=== PATIENT | female | born 1995 | race Hispanic/Latino ===

== ENCOUNTER 2020-04-27 14:22 | Emergency (ER) | payer OTHER, SELFPAY ==
--- NOTE | ~2020-04-27 | XR_ITS ---
EXAMINATION: XR chest 2V 04/27/2020 15:45 INDICATION: Chest pain PROCEDURE: 2 view chest COMPARISON: No prior studies for comparison. FINDINGS: The lungs are clear. There are a few calcified granulomas of the lung parenchyma. The cardi omediastinal silhouette is within normal limits. There are no pleural effusions. There is no pneumo thorax suspected. IMPRESSION: 1: NO ACUTE CARDIOPULMONARY DISEASE. Reviewed, dictated and finalized at location A.
--- NOTE | ~2020-04-27 | US_ITS ---
EXAMINATION:US venous doppler LE LT INDICATION:Calf pain TECHNIQUE: Multiple grayscale, color flow and Doppler images of the left lower extremity deep venous systems were obtained and reviewed. COMPARISON:No prior studies for comparison. FINDINGS: The common femoral, superficial femoral and popliteal veins demonstrate normal respiratory variation, augmentation and compressibility. Color flow is also seen within the posterior tibial, pe roneal, greater saphenous and profunda veins. IMPRESSION: 1: No lower extremity deep venous thrombosis. Reviewed, dictated and finalized at location A.
[2020-04-27 14:32] VITALS: BP 128/84; PULSE 102; RESP 18; TEMP 37.3; O2SAT 100
--- NOTE | 2020-04-27 14:35 | ECG_ITS ---
Measurements Intervals [place] Rate: 94 P: 53 MI: 156 QRS: 39 QRSD: 89 T: 9 QT: 322 QTc: 403 Interpretive Statements SINUS RHYTHM WITH SINUS ARRHYTHMIA BORDERLINE ST-T WAVE ABNORMALITY- INFERIOR LEADS BASELINE ARTIFACT- I, III, AVL BORDERLINE ECG Electronically Signed On 04-27-2020 15:16:36 CDT by Valdez Thomson D.O.
[2020-04-27 14:45] LABS: Basophils Percent Auto 0.1 % (0.2-1.2); Eosinophils Percent Auto 0.3 % (0-4.4); Hematocrit 41.3 % (37.0-47.0); Hemoglobin 13.8 g/dL (12.0-15.0); Immature Granulocyte Absolute 0.03 K/mm3 (0.00-0.031); Immature Granulocyte Percent A 0.3 % (0-0.5); Lymphocytes Percent Auto 19.4 % (18.3-44.2); Mean Corpuscular HGB Conc 33.4 g/dl (32-36); Mean Corpuscular Hemoglobin 30.2 pg (26-34); Mean Corpuscular Volume 90.4 fl (80-100); Mean Platelet Volume 9.8 fl (7.4-10.4); Monocytes Absolute Auto 0.8 K/mm3 (0.1-0.6); Monocytes Percent Auto 8.6 % (2.6-8.5); Neutrophils Absolute Auto 6.6 K/mm3 (1.3-6.7); Neutrophils Percent Auto 71.3 % (45.5-73.1); Platelet Count Result 207 k/mm3 (150-375); Red Blood Count 4.57 M/mm3 (4.2-5.4); Red Cell Distribution Width 12.6 % (11.5-14.5); White Blood Count 9.3 K/mm3 (4.5-10.0)
--- NOTE | 2020-04-27 14:54 | ED.CHESTPAIN ---
HPI - Chest Pain General Chief Complaint: Chest Pain Stated Complaint: CHEST PRESSURE Time Seen by Provider: 04/27/20 14:54 Source: patient and family Mode of arrival: ambulatory Limitations: no limitations History of Present Illness HPI narrative: Patient is a 24-year-old female with a history of migraines, anxiety, and depression who presents for evaluation of chest pressure and headache. Patient reports she was with her spouse doing laundry this afternoon when she experienced acute onset of chest pressure. She reports pressure was mild in nature, throughout her chest without radiation to her back, jaw, shoulder. She reports some associated lightheadedness and dizziness, denies any nausea, vomiting or loss of consciousness. Patient denies any palpitations. She states symptoms lasted for about 20 minutes before resolving on their own. Patient currently denies any chest pain and reports very mild chest pressure. Patient reports left leg pain. She denies swelling, erythema, history of long car or air travel, history of blood clot. Patient does not smoke. No family history of DVT. Patient does report a mild sore throat, no difficulty swallowing, rhinorrhea, denies loss of taste of sense or smell. No known COVID contacts. Patient does live on campus with her in student housing. Patient also reports history of headache pain since experiencing the chest pressure. Pain is located over her temples, patient does report she had a migraine last night which resolved with Excedrin, but seems to be rebounding. She denies current double or blurry vision. No neck pain. No nausea or vomiting. No thunderclap sensation. Related Data Home Medications Medication Instructions Recorded Confirmed fluvoxamine 100 mg PO HS 04/27/20 04/27/20 hydroxyzine HCl 25 mg PO DAILY PRN 04/27/20 04/27/20 lamotrigine 400 mg PO DAILY 04/27/20 04/27/20 Allergies Allergy/AdvReac Type Severity Reaction Status Date / Time No Known Allergies Allergy Verified 04/27/20 14:53 Review of Systems Review of Systems: Narrative: CONSTITUTIONAL: Denies fever, chills, or sweats. ENT: Reports rhinorrhea, congestion, sore throat CARDIOVASCULAR: Denies chest pain, reports mild chest pressure, denies palpitations, or edema. RESPIRATORY: Denies cough or dyspnea. GASTROINTESTINAL: Denies abdominal pain, nausea, vomiting, or diarrhea. GENITOURINARY: Denies dysuria or hematuria. SKIN: Denies rash or itching. MUSCULOSKELETAL: Reports mild bilateral back pain NEUROLOGIC: Denies headache, numbness, or weakness. PSYCHIATRIC: Reports history of anxiety and depression [facility] Past Medical History Medical History Migraine Surgical History Surgical History Hx of appendectomy Social History Social History (Updated 04/27/20 @ 15:18 by Kathi Hall MD) Smoking status: Never smoker Alcohol intake: current Alcohol use details: Social, rarely Substance use: former Substance use type: marijuana Living arrangements: with family Gender identity (if verbalized by the patient): Female Exam Narrative: Exam Narrative: GENERAL: Awake, alert, conversant HEAD: Normocephalic, atraumatic. EYES: PERRLA and EOMI. ENT: Nares clear, no rhinorrhea or epistaxis. Mucous membranes moist. NECK: Supple. CHEST: No respiratory distress, breathing even and non labored, positive chest wall pressure HEART: Regular rate, sinus rhythm ABDOMEN:Non distended, non tender EXTREMITIES: Normal range of motion. No edema. Positive left calf tenderness. SKIN: Warm, dry, no rash. NEURO:No focal deficits. Alert and oriented x3. EOMs intact without nystagmus. No facial droop/asymmetry noted bilaterally. Grimace intact. Intact sensation in face. Hearing intact bilaterally. Shoulder shrug intact. Strength 5/5 bilateral upper extremities. Strength 5/5 bilateral lower extremities. A
[2020-04-27 14:59] LABS: Anion Gap 14 mmol/L (8-16); Blood Urea Nitrogen 9 mg/dL (7-17); Calcium 9.5 mg/dL (8.4-10.2); Carbon Dioxide 20 mmol/L (22-30); Chloride 102 mmol/L (98-107); Estimated CRCL calculation 109 ml/min; Estimated Glomerular Filt Rate > 60; Glucose 97 mg/dL (65-105); Potassium 4.1 mmol/L (3.4-5.0); Sodium 136 mmol/L (137-145)
[2020-04-27 15:03] VITALS: BP 116/81; BP 128/82; BP 128/83; PULSE 100; PULSE 102; PULSE 110
[2020-04-27 15:11] LABS: Troponin I < 0.012 ng/mL (0.000-0.034)
[2020-04-27 16:00] VITALS: BP 100/69; PULSE 89; RESP 20; O2SAT 100
[2020-04-27] MEDS: METOCLOPRAMIDE HCL INJ 10 MG/2 ML VIAL IV PUSH (16:03)
[2020-04-27] MEDS: SODIUM CHLORIDE 0.9% IV 1,000 ML 999 ML IV CONT (16:03)
[2020-04-27] MEDS: diphenhydrAMINE HCl INJ 50 MG/ML VIAL 25 MG IV PUSH (16:04)
[2020-04-27] MEDS: MAGNESIUM SULF 2 GM/WATER 50ML 2 GM/50 ML BAG IVPB (16:05)
--- NOTE | 2020-04-27 16:12 | PC.NURSE ---
lab called. notified of add on labs
[2020-04-27 16:24] LABS: Anion Gap 10 mmol/L (8-16); Blood Urea Nitrogen 10 mg/dL (7-17); Calcium 9.4 mg/dL (8.4-10.2); Carbon Dioxide 22 mmol/L (22-30); Chloride 103 mmol/L (98-107); Estimated CRCL calculation 97 ml/min; Estimated Glomerular Filt Rate > 60; Glucose 96 mg/dL (65-105); Sodium 135 mmol/L (137-145)
[2020-04-27 16:25] LABS: INR 1.1; Prothrombin Time 13.4 Seconds (11.1-14.7)
[2020-04-27 16:26] LABS: Partial Thromboplastin Time 34.3 SECONDS (22.3-36.8)
[2020-04-27 16:29] LABS: D Dimer 0.38 ug/mL (<0.48)
[2020-04-27 16:35] LABS: Troponin I < 0.012 ng/mL (0.000-0.034)
[2020-04-27 17:49] VITALS: BP 132/75; PULSE 69; RESP 20; O2SAT 97
[2020-04-27 18:15] LABS: Add Urine Microscopic? YES; Appearance Urine Clear (Clear); Bilirubin Urine Negative (Negative); Blood Urine Negative (Negative); Color Urine Yellow (Yellow); Glucose Urine UA Negative (Negative); Ketones Urine 1+ mg/dL (Negative); Leukocyte Esterase Ur Negative LEU/UL (Negative); Mucus Urine Rare /lpf; Nitrate Urine Negative (Negative); Protein Urine Negative (Negative); RBC Urine 0-2 /hpf (0-2); Specific Grav Ur 1.019 (1.001-1.035); Squamous Epithelial Cell Urine Few /hpf (Few); Urobilinogen Urine Negative mg/dL (<2.0); WBC Urine 0-3 /hpf
[2020-04-27 18:30] LABS: Troponin I < 0.012 ng/mL (0.000-0.034)
[2020-04-27 18:50] VITALS: BP 115/72; PULSE 77; RESP 20; O2SAT 98
== END 2020-04-27 19:01 | disposition home or self-care (01) ==
PROVIDERS: Emergency Provider Emergency Medicine
DX: R07.89 Other chest pain (principal); G43.009 Migraine without aura, not intractable, without status migrainosus; R94.31 Abnormal electrocardiogram [ECG] [EKG]
CPT/HCPCS: 36415; 71046; 80048; 81001; 81025; 84484; 85025; 85380; 85610; 85730; 93005; 93971; 96365; 96366; 96367; 96375; 99284; J0131; J1100; J1200; J2765; J3475; J7030

== ENCOUNTER 2020-05-02 15:09 | Observation (INO) | payer OTHER, SELFPAY ==
[2020-05-02] VITALS (25 sets, daily range): BP systolic 91–136; BP diastolic 54–90; PULSE 66–112; RESP 15–28; TEMP 36.6; O2SAT 92–100; BMI 36.4
--- NOTE | ~2020-05-02 | CT_ITS ---
EXAMINATION: CTA chest PE protocol DATE: 05/03/2020 13:43 INDICATION: Shortness of breath. Chest pain. Syncope. TECHNIQUE: Computed tomography angiography (CTA) of the chest was performed with 100 mL Omnipaque-350 intravenous contrast timed to evaluate the pulmonary arteries. Coronal maximum intensity projection 3D-reconstructions were created by the technologist. Automated exposure control and iterative reconst ruction technique were employed. Exam dose: 539.64 mGy-cm total exam DLP. COMPARISON: None. FINDINGS: There is diagnostic contrast enhancement of the pulmonary arteries and no evidence of pulmo nary embolism. No thoracic aortic aneurysm or dissection. Normal heart size. No pericardial or pleural effusion. No hilar or mediastinal mass lesion or lymphadenopathy There is minimal nodular infiltrate in the posterior basilar right lower lobe. The lungs are otherwis e clear. No significant skeletal abnormality. IMPRESSION: No evidence of pulmonary embolism Minimal nodular infiltrate in the posterior basilar right lower lobe Reviewed, dictated and finalized at Location A. Reviewed, dictated and finalized at location A.
--- NOTE | ~2020-05-02 | MR_ITS ---
EXAMINATION: MR brain/brain stem wo/w con DATE: 05/04/2020 14:46 INDICATION: Transient alteration of awareness TECHNIQUE: Magnetic resonance imaging (MRI) of the brain and brainstem was performed without and with 19 cc of MultiHance intravenous contrast. Sequences included sagittal and axial T1-weighted SE, axia l diffusion-weighted FS EPI ASSET, axial T2*-weighted GRE, axial T2-weighted FLAIR Propeller, and axi al T2-weighted Propeller. Postcontrast axial and coronal T1-weighted SE was obtained. Apparent diffus ion coefficient (ADC) maps were created. COMPARISON: None. FINDINGS: There are no areas of restricted diffusion to suggest acute infarction. There is no acute h emorrhage seen on the T2*, a hemosiderin sensitive sequence. The ventricles are normal in size. There are no extra-axial collections. Flow voids are seen in the cerebral arteries on the T2-weighted seq uences consistent with their expected patency. Visualized orbits and soft tissues are unremarkable. There are no areas of abnormal enhancement on the post contrast images. IMPRESSION: 1. No acute findings. Reviewed, dictated and finalized at location A. IMPRESSION: 1. No acute findings.
--- NOTE | ~2020-05-02 | CT_ITS ---
EXAMINATION: CT brain wo con DATE: 05/03/2020 13:43 INDICATION: Syncope TECHNIQUE: Computed tomography (CT) of the head was performed without intravenous contrast. The mA wa s adjusted according to patient size. Iterative reconstruction technique was employed. Exam dose: 60 5.33 mGy-cm total exam DLP. COMPARISON: None FINDINGS: No intracranial mass lesion or hemorrhage or cerebrovascular accident is detected. No midli ne shift or mass effect. Normal ventricular size. Normal vigil-white matter differentiation. No subdur al or epidural hematoma. The orbital contents are unremarkable. The mastoid air cells and included paranasal sinuses are normally developed and aerated. No fracture or bone destruction of the cranial vault. IMPRESSION: Negative Reviewed, dictated and finalized at Location A. Reviewed, dictated and finalized at location A. IMPRESSION: Negative
--- NOTE | ~2020-05-02 | CT_ITS ---
EXAMINATION: CTA brain carotid DATE: 05/04/2020 15:33 INDICATION: Transient alteration of awareness TECHNIQUE: Computed tomographic angiography (CTA) of the head was performed without and with 100 mL O mnipaque-350 intravenous contrast. CTA of the neck was performed with intravenous contrast. The dose- length product was 1663.30 mGy-cm. Maximum intensity projection and volume rendered 3D-reconstruction s were created by the technologist on a separate workstation. Automated exposure control and iterativ e reconstruction technique were employed. COMPARISON: 05/03/2020 FINDINGS: HEAD CTA: There is no intracranial hemorrhage, acute infarction, or abnormal mass lesion. The ventric les are normal. There is no abnormal mass effect or midline shift. The vigil-white matter differentiat ion is normal. The basal cisterns are patent. The orbits are normal. The paranasal sinuses, mastoids and calvarium are normal. There is no significant stenosis of the basilar artery or posterior cerebral arteries. There is no si gnificant stenosis of the intracranial internal carotid arteries or the anterior or middle cerebral a rteries. The anterior communicating artery and posterior communicating arteries are normal. There is no aneurysm. NECK CTA: The thyroid gland is unremarkable. The submandibular and parotid glands are symmetric. Ther e is cervical lymphadenopathy, left greater than right. The airway is unremarkable. There are no osse ous abnormalities. The superior mediastinum is unremarkable. There is 0% stenosis of the proximal right internal carotid artery relative to normal distal artery l umen diameter (NASCET criteria). There is 0% stenosis of the proximal left internal carotid artery re lative to normal distal artery lumen diameter. IMPRESSION: 1. No acute intracranial abnormality. Normal head CTA. 2. 0% stenosis of the proximal right internal carotid artery relative to normal distal artery lumen d iameter (NASCET criteria). 3. 0% stenosis of the proximal left internal carotid artery relative to normal distal artery lumen di ameter. 4. Cervical lymphadenopathy, left greater than right, of unclear etiology. Findings could be reactive however lymphoma could have a similar appearance. Recommend clinical correlation and consider ultras ound-guided biopsy if persistent after appropriate therapy. Reviewed, dictated and finalized at location A. IMPRESSION: 1. No acute intracranial abnormality. Normal head CTA. 2. 0% stenosis of the proximal right internal carotid artery relative to normal distal artery lumen diameter (NASCET criteria). 3. 0% stenosis of the proximal left internal carotid artery relative to normal distal artery lumen diameter. 4. Cervical lymphadenopathy, left greater than right, of unclear etiology. Find ings could be reactive however lymphoma could have a similar appearance. Recomm end clinical correlation and consider ultrasound-guided biopsy if persistent af ter appropriate therapy.
--- NOTE | 2020-05-02 15:11 | ECG_ITS ---
Measurements Intervals [place] Rate: 84 P: 74 MN: 164 QRS: 62 QRSD: 91 T: 44 QT: 338 QTc: 401 Interpretive Statements SINUS RHYTHM INCOMPLETE RIGHT BUNDLE BRANCH BLOCK BASELINE ARTIFACT- I, II, III, AVR, AVL BORDERLINE ECG Electronically Signed On 05-02-2020 16:46:33 CDT by Valdez Thomson D.O.
[2020-05-02] MEDS: SODIUM CHLORIDE 0.9% IV 1,000 ML 999 ML IV CONT (16:30)
--- NOTE | 2020-05-02 16:31 | PC.NURSE ---
Refuses CXR. ERP aware.
[2020-05-02 16:46] LABS: Anion Gap 9 mmol/L (8-16); Blood Urea Nitrogen 15 mg/dL (7-17); Calcium 9.5 mg/dL (8.4-10.2); Carbon Dioxide 29 mmol/L (22-30); Chloride 99 mmol/L (98-107); Estimated CRCL calculation 90 ml/min; Estimated Glomerular Filt Rate > 60; Glucose 104 mg/dL (65-105); Potassium 3.8 mmol/L (3.4-5.0); Sodium 137 mmol/L (137-145)
[2020-05-02 16:47] LABS: Magnesium 2.5 mg/dL (1.6-2.3)
[2020-05-02 17:02] LABS: Troponin I < 0.012 ng/mL (0.000-0.034)
--- NOTE | 2020-05-02 17:06 | ED.SYNCOPE ---
HPI - Syncope General Chief Complaint: Syncope Stated Complaint: syncopal episode Time Seen by Provider: 05/02/20 15:48 History of Present Illness HPI narrative: Patient is a 24-year-old female who presents the ER with syncope. Occurred just prior to arrival. Lasted a couple seconds. She was sitting at a table and finished eating a meal and was doing some work when she felt like her heart was racing and she felt flushed. She then woke up on the ground. It was witnessed by coworkers. No headache or change in vision or hearing. This happens previously in the week she had an unremarkable work-up including troponins and d-dimer. She had been feeling in her normal state of health. No family history of sudden cardiac or arrhythmia. Related Data Home Medications Medication Instructions Recorded Confirmed fluvoxamine 100 mg PO HS 04/27/20 04/27/20 lamotrigine 400 mg PO DAILY 04/27/20 04/27/20 Allergies Allergy/AdvReac Type Severity Reaction Status Date / Time No Known Allergies Allergy Verified 05/02/20 15:52 Review of Systems Review of Systems: All systems reviewed & are unremarkable except as noted in HPI and below Constitutional: Constitutional: Denies chills, Denies fever(s) and Denies weakness Eyes: Eyes: Denies change in vision Cardiovascular: Cardiovascular: Denies chest pain, Reports rapid heart rate and Denies radiating jaw, neck or arm pain Respiratory: Respiratory: Denies cough and Denies dyspnea Neurologic: Reports syncope, Denies focal weakness and Denies numbness PMFSH Social History Social History (Updated 04/27/20 @ 15:18 by Kathi Hall MD) Smoking status: Never smoker Alcohol intake: current Substance use: former Substance use type: marijuana Gender identity (if verbalized by the patient): Female Exam Narrative: Exam Narrative: GENERAL: Well-appearing, well-nourished, and in no acute distress. HEAD: Normocephalic, atraumatic. EYES: PERRLA and EOMI. CHEST: Clear to auscultation. No respiratory distress. HEART: Regular rate and rhythm. No murmur heard. Normal peripheral pulses. ABDOMEN: Soft, nontender, nondistended. EXTREMITIES: Normal range of motion. No edema. SKIN: Warm, dry, no rash. NEURO: Alert and oriented x3. PSYCH: Normal mood and affect. Course Course Emergency Course: Discussed results with patient. Admit to hospitalist service since patient has had recurrent syncope for observation. May need Holter monitor outpatient. Pt refused CXR. Vital Signs Vital signs: Vital Signs Temperature 97.9 F 05/02/20 15:21 Pulse Rate 88 05/02/20 15:21 Respiratory Rate 16 05/02/20 15:21 Blood Pressure 125/85 05/02/20 15:21 Pulse Oximetry 100 05/02/20 15:21 Temperature 97.9 F 05/02/20 15:21 Pulse Rate 82 05/02/20 17:46 Respiratory Rate 22 H 05/02/20 17:46 Blood Pressure 119/80 05/02/20 17:45 Pulse Oximetry 100 05/02/20 17:46 MDM - Syncope Lab Data Result diagrams: 05/02/20 16:48 05/02/20 15:48 Labs: Lab Results 05/02/20 05/02/20 05/02/20 Range/Units 15:48 15:48 15:48 WBC (4.5-10.0) K/mm3 RBC (4.2-5.4) M/mm3 Hgb (12.0-15.0) g/dL Hct (37.0-47.0) % MCV (80-100) fl MCH (26-34) pg MCHC (32-36) g/dl RDW (11.5-14.5) % Plt Count (150-375) k/mm3 MPV (7.4-10.4) fl Immature Gran % (Auto) (0-0.5) % Neut % (Auto) (45.5-73.1) % Lymph % (Auto) (18.3-44.2) % [place] % (Auto) (2.6-8.5) % Eos % (Auto) (0-4.4) % Baso % (Auto) (0.2-1.2) % Lymph # (Auto) (0.9-3.2) K/mm3 [place] # (Auto) (0.1-0.6) K/mm3 Eos # (Auto) (0-0.3) K/mm3 Baso # (Auto) (0.0-0.1) K/mm3 Abs Immat Gran (auto) (0.00-0.031) K/mm3 Absolute Neuts (auto) (1.3-6.7) K/mm3 Absolute Nucleated RBC (0.0-0.012) K/mm3 Nucleated RBC % (0.0-0.2) % Sodium 137 (137-145) mmol/L Potassium 3.8 (3.4-5.0) mmol/L Chloride 99
[2020-05-02 17:08] LABS: Basophils Percent Auto 0.4 % (0.2-1.2); Eosinophils Absolute Auto 0.1 K/mm3 (0-0.3); Hematocrit 43.8 % (37.0-47.0); Hemoglobin 14.3 g/dL (12.0-15.0); Immature Granulocyte Absolute 0.12 K/mm3 (0.00-0.031); Immature Granulocyte Percent A 1.2 % (0-0.5); Lymphocytes Absolute Auto 2.84 K/mm3 (0.9-3.2); Lymphocytes Percent Auto 27.2 % (18.3-44.2); Mean Corpuscular HGB Conc 32.6 g/dl (32-36); Mean Corpuscular Hemoglobin 29.6 pg (26-34); Mean Corpuscular Volume 90.7 fl (80-100); Mean Platelet Volume 9.7 fl (7.4-10.4); Monocytes Absolute Auto 0.8 K/mm3 (0.1-0.6); Neutrophils Absolute Auto 6.5 K/mm3 (1.3-6.7); Neutrophils Percent Auto 62.2 % (45.5-73.1); Platelet Count Result 243 k/mm3 (150-375); Red Blood Count 4.83 M/mm3 (4.2-5.4); Red Cell Distribution Width 12.5 % (11.5-14.5); White Blood Count 10.4 K/mm3 (4.5-10.0)
--- NOTE | 2020-05-02 19:29 | PC.NURSE ---
Assumed care of pt at this time. Report from ANA Gerard
--- NOTE | 2020-05-02 21:28 | ADMGEN ---
This patient, Maria Alejandra Corcoran, was admitted to 2 Medical Room 243-. Patient/family oriented to hospital policies and general routines including ID bracelet, bed and alarms, visiting hours, pain management, procedures, bathroom and other care routines, personal items, smoking policy, room service/diet, and visiting hours. Valuables list has been completed. Information on how to activate the Rapid Response Team has been discussed. Patient/Family are encouraged to report perceived risks to care and to ask questions if they do not understand what they are told or what they should do.
[2020-05-02] MEDS: ACETAMINOPHEN 325 MG TABLET 650 MG PO (22:42)
[2020-05-03] VITALS (15 sets, daily range): BP systolic 106–136; BP diastolic 62–79; PULSE 65–125; RESP 15–16; TEMP 36.2–36.9; O2SAT 97–100
--- NOTE | 2020-05-03 | ECHO_ITS ---
Patient Info Name: Maria Alejandra Corcoran Age: 24 years : 1995 Gender: Female Ht: 65 in Wt: 219 lbs BSA: 2.18 m2 HR: 85 bpm BP: 115 / 69 mmHg Heart Rhythm: Sinus Rhythm Technical Quality: Good Exam Date: 05/03/2020 9:55 AM Exam Location: [facility] Patient Status: Inpatient Admit Date: 05/02/2020 Staff Ordering Physician: Juaquin Angel MD Manager Fine: Lisa Main RDCS Attending Provider: Sree Hurt MD Exam Type: CA echo dop color flow w con Study Info Complete two-dimensional, color flow and Doppler transthoracic echocardiogram is performed with contrast to opacify the left ventricle and to improve the deliniation of the left ventricle endocardial borders. Contrast/Agitated Saline Contrast/Ag. Saline: Definity Amount: 2.00 ml Summary 1. Left ventricular chamber dimension is normal. 2. Left ventricular systolic function is normal, estimated at 55-60%. 3. There is mildly increased left ventricular wall thickness. 4. Left ventricular septal wall motion is normal. 5. The left ventricular diastolic function is normal. 6. There is mild tricuspid valve regurgitation. Left Ventricle Left ventricular chamber dimension is normal. Left ventricular systolic function is normal, estimated at 55-60%. There is mildly increased left ventricular wall thickness. Left ventricular septal wall motion is normal. The left ventricular diastolic function is normal. Right Ventricle Right ventricular chamber dimension is normal. Right ventricular systolic function is normal. Left Atria Left atrial chamber dimension is normal. Right Atria Right atrial chamber dimension is normal. Atrial Septum Intact interatrial septum visualized by color flow imaging. Aortic Valve The aortic valve is probable trileaflet. There is no aortic valve sclerosis. There is no aortic valve stenosis. There is trace aortic valve regurgitation. Pulmonic Valve The pulmonic valve is normal. There is no pulmonic valve stenosis. There is trace pulmonic regurgitation. Mitral Valve The mitral valve has normal leaflets. There is no mitral valve stenosis. There is trace mitral valve regurgitation. Tricuspid Valve The tricuspid valve leaflets are normal. There is no significant tricuspid valve stenosis. There is mild tricuspid valve regurgitation. No pulmonary hypertension, estimated pulmonary arterial systolic pressure is 25 mmHg. Pericardium/Pleural The pericardium appears normal. There is no pericardial effusion. Inferior Vena Cava Normal inferior vena cava with >50% collapse upon inspiration consistent with normal right atrial pressure, 5 mmHg. Aorta The aortic root size at the sinus of Valsalva is normal. The prox ascending aorta size is normal. Left Ventricular Outflow Tract Name Value Normal LVOT 2D LVOT Diameter 2.04 cm LVOT Doppler LVOT Peak Gradient 4 mmHg LVOT Mean Gradient 2 mmHg LVOT VTI 19.76 cm LVOT VTI/AV VTI Ratio 0.74
--- NOTE | 2020-05-03 08:20 | PM.IMHP ---
H&P: HPI History of Present Illness Date/Time: 05/03/20 08:20 Chief complaint: Syncope Narrative: Maria Alejandra Corcoran is a 24 year old female with OCD and Bipolar disorder here for syncopal episodes. Patient was in a normal state of health until April 27 when she developed chest pressure associated with elevated heart rate and shortness of breath. She states that it felt like 1 of her anxiety attacks initially but overall felt different. She ended up having a syncopal episode that lasted about 30 seconds. She also had associated right-sided headache. She does have chronic headaches however. She came to the emergency room and was evaluated on that day. Troponins are negative. Urine was clear. Routine blood work was normal. EKG showing borderline ST T wave changes in inferior leads. She had a sinus arrhythmia. Chest x-ray was clear. Venous Dopplers were negative for DVT. D-dimer was negative. She was discharged home. Since being at home, she has had some mild dyspnea on exertion. She saw her primary care doctor on May 01 and he recommended patient follow-up with a marina manager and neurologist. Theer has been no recent new medications. Patient did sleep quite a bit on that day and woke up diaphoretic. On the day of admission, patient felt lightheaded at work. She had difficulty catching her breath. She was diaphoretic even with mild activity. She had been up for few minutes when she became lightheaded and fainted. There was loss of consciousness but no head injury. She denies neck pain but did have a headache later. She denies any fevers but has been having chills over the past week. She has been also having intermittent headaches over the week but she does have chronic headaches. She has spots in her eyes when she has her headaches. no nausea, vomiting or diarrhea. No cough. She has chronic abdominal pain for many years. This has not significantly changed. No history of seizures or strokes. No recent travel, no long car rides or plane rides, no hx of blood clots. On Mirena for control. She takes the lamotrigine for OCD. She does smoke marijuana but quit 3 weeks ago. Because of the syncopal episode patient was brought to the emergency room for evaluation. In the emergency room, patient was hemodynamically stable. She was mildly tachycardic at 105. Lab work was unrevealing. Troponin was negative. Slightly elevated white count with some immature cells noted. Repeat EKG showed incomplete right bundle branch block. She has a history of stuttering heart rate the last 3-5 seconds but none since admission. Telemetry here showing no significant dysrhythmias. She had a negative test. She was admitted for further care. Review of Systems Review of Systems: All systems reviewed & are unremarkable except as noted in HPI and below PMFSH Past Medical History Medical History (Updated 05/03/20 @ 08:57 by Juaquin Angel MD) Anxiety with depression Bipolar disorder Chronic headaches OCD (obsessive compulsive disorder) Surgical History Surgical History (Updated 05/03/20 @ 08:47 by Juaquin Angel MD) Hx of appendectomy Hx of removal of ovary Right. At the time of the appendix due to large ovarian cyst Family History Family History (Updated 05/03/20 @ 08:48 by Juaquin Angel MD) Mother Mental health disorder Grandparent Cerebrovascular accident Social History Social History (Updated 05/03/20 @ 08:49 by Juqauin Angel MD) Social History: She lives at home with her . No pets. 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 No tobacco use. She smoked marijuana but quit 3 weeks ago. No history of other drug use. Uses alcohol socially. She is a full code. She nominated her to be the individual would make medical decisions for her she is not able. Smoking status: Never smoker Alcohol intake: current Drinks per week: 1 Substance use: never Substance use type: marijuana
[2020-05-03] MEDS: ACETAMINOPHEN 325 MG TABLET 650 MG PO ×2 (08:44→13:49)
[2020-05-03] MEDS: ENOXAPARIN 40 MG/0.4 ML SYRINGE SUB-Q (09:36)
[2020-05-03 11:47] LABS: Add Urine Microscopic? NO; Appearance Urine Clear (Clear); Bilirubin Urine Negative (Negative); Blood Urine Negative (Negative); Color Urine Straw (Yellow); Glucose Urine UA Negative (Negative); Ketones Urine Negative (Negative); Leukocyte Esterase Ur Negative LEU/UL (Negative); Nitrate Urine Negative (Negative); Protein Urine Negative (Negative); Specific Grav Ur 1.012 (1.001-1.035); Urobilinogen Urine Negative mg/dL (<2.0)
--- NOTE | 2020-05-03 11:56 | PHAR ---
The patient's home med of Fluvoxamine 100 MG has been verified.
[2020-05-03] MEDS: CHOLECALCIFEROL 1,000 UNITS TABLET 2000 UNITS PO (20:15)
[2020-05-03] MEDS: LORATADINE 10 MG TABLET PO (20:16)
[2020-05-03] MEDS: lamoTRIgine 100 MG TABLET 400 MG PO (20:16)
[2020-05-04] VITALS (13 sets, daily range): BP systolic 115–131; BP diastolic 62–86; PULSE 76–145; RESP 16; TEMP 36.4–36.9; O2SAT 100
[2020-05-04] MEDS: ENOXAPARIN 40 MG/0.4 ML SYRINGE SUB-Q (08:10)
--- NOTE | 2020-05-04 13:39 | PM.IMPN ---
Progress Note: A&P Assessment and Plan (1) Syncope: Qualifiers: Syncope type: unspecified Qualified Code(s): R55 - Syncope and collapse Code(s): R55 - Syncope and collapse Status: Acute Assessment and Plan: Patient here after having a syncopal episode. CTA negative for PE or other concerning findings. Echo is normal. CT brain also normal. Could be anxiety related with panic attacks. Consider dysrhythmia but only sinus tachycardia by monitor. Consider also seizures although patient already on lamotrigine for other reasons. Overall infectious etiology seems less likely. Neurology consult ordered and discussed by phone. They recommended CTA head/neck and Brain MRI. Continue tele. (2) Sinus tachycardia: Code(s): R00.0 - Tachycardia, unspecified Status: Acute Assessment and Plan: Patient noted to be tachycardic when up walking. No PE by CTA. TSH normal. Echo normal. Not dehydrated. Deconditioning? Continue tele. Will arrange for her to follow up with Cardiology in the clinic. (3) Bipolar disorder: Qualifiers: Active/Remission status: in full remission Most recent bipolar episode type: most recent episode unspecified type Qualified Code(s): F31.70 - Bipolar disorder, currently in remission, most recent episode unspecified Code(s): F31.9 - Bipolar disorder, unspecified Status: Acute Assessment and Plan: Mood stable. Continue lamotrigine. (4) Anxiety with depression: Code(s): F41.8 - Other specified anxiety disorders Status: Acute Assessment and Plan: Normal mood and affect. Continue fluvoxamine. (5) Chronic headaches: Qualifiers: Headache type: unspecified Intractability: not intractable Qualified Code(s): R51 - Headache Code(s): R51 - Headache Status: Acute Assessment and Plan: Stable. Pain medication available as needed. (6) DVT prophylaxis: Code(s): Z29.9 - Encounter for prophylactic measures, unspecified Status: Acute Assessment and Plan: Lovenox Subjective Date/time seen: 05/04/20 13:39 Interval history: 24yo female with OCD and Bipolar here for syncopal episode. Megan feels well. Eating okay. Desiree has been tachycardic when walking. SHe constantino state she feels palpitations when she walking. Complains of left whole hand tingling but positional. Exam Narrative: Exam Narrative: AF 97.5 120/70 143 16 100% ra Gen - NARD Chest - CTA bilateral CV - RRR S1/S2. Telemetry showing no significant dysrhythmias except sinus tachycardic on occasion Abd - soft, NT/ND, +BS Ext - no edema Psych - normal mood and affect. Patient is pleasant and cooperative. Skin - warm and dry. No rashes noted. UPT negative 04/27/20 Objective Data Vital Signs Vital Signs: Vital Signs - 24 hr 05/03/20 14:00 05/03/20 16:00 05/03/20 19:45 Temperature 98.5 F Pulse Rate 90 74 125 H Respiratory Rate 15 Blood Pressure 114/67 Pulse Oximetry 100 05/03/20 20:00 05/03/20 22:00 05/03/20 22:32 Temperature 97.5 F L Pulse Rate 91 97 Respiratory Rate 16 Blood Pressure 125/79 116/78 Pulse Oximetry 97 05/04/20 00:00 05/04/20 04:00 05/04/20 06:00 Temperature 97.5 F L Pulse Rate 94 81 76 Respiratory Rate 16 Blood Pressure 131/76 Pulse Oximetry 100 05/04/20 08:00 05/04/20 12:00 05/04/20 12:15 Temperature Pulse Rate 107 H 117 H 106 H Respiratory Rate Blood Pressure 115/62 Pulse Oximetry 05/04/20 12:18 05/04/20 12:21 Temperature Pulse Rate 113 H 143 H Respiratory Rate Blood Pressure 128/86 120/70 Pulse Oximetry Intake/Output Intake/Output: Intake & Output 05/01/20 05/02/20 05/03/20 05/04/20 23:59 23:59 23:59 23:59 Intake Total 1000 1420 1190 Output Total 750 Balance 7809 553 0042 Meds/Results Medications: Active Medications Generic Name Dose Route Start Las
[2020-05-04] MEDS: LORATADINE 10 MG TABLET PO (20:30)
[2020-05-04] MEDS: lamoTRIgine 100 MG TABLET 400 MG PO (20:30)
[2020-05-04] MEDS: CHOLECALCIFEROL 1,000 UNITS TABLET 2000 UNITS PO (20:30)
[2020-05-05] VITALS (7 sets, daily range): BP systolic 110–116; BP diastolic 65–66; PULSE 74–108; RESP 14–16; TEMP 36.6; O2SAT 99–100
[2020-05-05] MEDS: ENOXAPARIN 40 MG/0.4 ML SYRINGE SUB-Q (07:49)
[2020-05-05] MEDS: ACETAMINOPHEN 325 MG TABLET 650 MG PO (07:56)
--- NOTE | 2020-05-05 14:34 | WPDNEURCNPN ---
Assessment and Plan Assessment and plan (1) Sinus tachycardia: Code(s): R00.0 - Tachycardia, unspecified Status: Acute (2) Anxiety with depression: Code(s): F41.8 - Other specified anxiety disorders Status: Acute (3) Bipolar disorder: Qualifiers: Active/Remission status: in full remission Most recent bipolar episode type: most recent episode unspecified type Qualified Code(s): F31.70 - Bipolar disorder, currently in remission, most recent episode unspecified Code(s): F31.9 - Bipolar disorder, unspecified Status: Acute (4) Chronic headaches: Qualifiers: Headache type: unspecified Intractability: not intractable Qualified Code(s): R51 - Headache Code(s): R51 - Headache Status: Acute (5) Syncope: Qualifiers: Syncope type: unspecified Qualified Code(s): R55 - Syncope and collapse Code(s): R55 - Syncope and collapse Status: Acute Additional Plan the patient is CTA of the neck shows some cervical lymphadenopathy which can be addressed by the primary care physician with whom she has the appointment tomorrow I told her that as for as I am concerned she can be discharged at the discretion of the hospitalist and the primary care physician can see her and schedule an EEG for the completeness sake as an outpatient and then after that I will be happy to follow her she also would like to be seen by the relay associate which will be appropriate considering that she continues to have sinus tachycardia which could very well be related to her underlying anxiety disorder it is also worth mentioning in the T4 TSH has not been checked needs to be checked to make sure she is not hyper thyroid Consult date: 05/05/20 Time Seen: 14:00 HPI: Maria Alejandra Corcoran is a 24 year old female who is left-handed was admitted what sounds like a syncopal episode 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 The patient does have anxiety spells in the past and also suffers from obsessive-compulsive disorder and bipolar disorder for which she has been under treatment under the psychiatrist at the time of this examination the patient is doing fairly well denies any further episodes denies any headache nausea vomiting chest pain shortness of breath fever chills sore throat the workup so far has been unrevealing including the CTA of the head and neck and also MRI of the brain with without contrast and also the echocardiogram clinically it does not sound like a seizure or seizure-like activity PMFSH Past Medical History Medical History Anxiety with depression Bipolar disorder Chronic headaches OCD (obsessive compulsive disorder) Surgical History Surgical History Hx of appendectomy Hx of removal of ovary Right. At the time of the appendix due to large ovarian cyst Family History Family History Mother Mental health disorder Grandparent Cerebrovascular accident Social History Social History Social History: She lives at home with her . No pets. 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 No tobacco use. She smoked marijuana but quit 3 weeks ago. No history of other drug use. Uses alcohol socially. She is a full code. She nominated her to be the individual would make medical decisions for her she is not able. Smoking status: Never smoker Alcohol intake: current Drinks per week: 1 Substance use: never Substance use type: marijuana Last use: 3 weeks ago Gender identity (if verbalized by the patient): Female Spiritual care concerns: No Meds Home Medications and Allergies Home Medications Medication Instr
--- NOTE | 2020-05-05 17:24 | PM.DS ---
DS: Admitting Diagnosis Admitting Diagnosis Admitting Diagnosis: Syncope DS: Discharge Diagnosis Discharge Diagnosis (1) Syncope: Qualifiers: Syncope type: unspecified Qualified Code(s): R55 - Syncope and collapse Code(s): R55 - Syncope and collapse Status: Acute Assessment and Plan: Patient here after having a syncopal episode. CTA negative for PE or other concerning findings. Echo is normal. CT brain also normal. Brain MRI normal. CTA of the head and neck also was normal except for L>R cervical lymphadenopathy. Could be anxiety related with panic attacks. Consider dysrhythmia but only sinus tachycardia by monitor. Consider also seizures although patient already on lamotrigine for other reasons. Overall infectious etiology seems less likely. Neurology consulted. Plan for discharge home with outpatient EEG and follow up with neurology. (2) Sinus tachycardia: Code(s): R00.0 - Tachycardia, unspecified Status: Acute Assessment and Plan: Patient noted to be tachycardic when up walking. No PE by CTA. TSH normal. Echo normal. Not dehydrated. Deconditioning? Anxiety? Plan for patient to follow up with Cardiology in the clinic. (3) Cervical lymphadenopathy: Code(s): R59.0 - Localized enlarged lymph nodes Status: Acute Assessment and Plan: CTA showing cervical lymphadenopathy, left greater than right, of unclear etiology. Will treat with azithromycin. Will have her follow up with PCP for further evaluation. I called Dr. Montano prior to discharge and hospital course and follow-up plan was discussed. He was also informed him of these findings as well and that the patient will need close follow up to exclude lymphoma. (4) Bipolar disorder: Qualifiers: Active/Remission status: in full remission Most recent bipolar episode type: most recent episode unspecified type Qualified Code(s): F31.70 - Bipolar disorder, currently in remission, most recent episode unspecified Code(s): F31.9 - Bipolar disorder, unspecified Status: Acute Assessment and Plan: Mood stable. We continued lamotrigine. (5) Anxiety with depression: Code(s): F41.8 - Other specified anxiety disorders Status: Acute Assessment and Plan: Normal mood and affect. We continued fluvoxamine. (6) Chronic headaches: Qualifiers: Headache type: unspecified Intractability: not intractable Qualified Code(s): R51 - Headache Code(s): R51 - Headache Status: Acute Assessment and Plan: Stable. Pain medication available as needed. Brain MRI normal DS: Summary Hospital Course Reason for hospitalization: 24yo female here for syncopal episode. Please see HnP for details. Hospital Course: As above Time Spent with Patient Time attestation: Total time spent providing and/or coordinating discharge services:35 minutes Time spent: Greater than 30 minutes Exam Narrative: Exam Narrative: Patient feels well today. Eating normally. No exposures to cats or kittens. AF 97.8 116/65 74 14 100% ra Gen - NARD Neck - no dominant adenopathy but the left sternocleidomastoid muscle appears botello than the right. no supraclavicular or axillary adenopathy. Chest - CTA bilateral CV - RRR S1/S2. Telemetry showing occasional sinus tachycardic Abd - soft, NT/ND, +BS Ext - no edema Psych - normal mood and affect. Patient is pleasant and cooperative. Skin - warm and dry. No rashes noted. UPT negative 04/27/20 Discharge Plan Discharge Attending physician on discharge: Juaquin Angel Consulting providers: Satish Lemons Discharging Clinician: Juaquin Angel Anticipated Discharge Date/Time: 05/05/20 17:35 Patient Disposition: Home, Self-Care Activity: no driving Diet: heart healthy Discharge Instructions: Please avoid large gathering, wear face coverings in public and practice soci
== END 2020-05-05 18:27 | disposition home or self-care (01) ==
LOC: ANHED 19:06 → ANH2MED 05-05 17:40
PROVIDERS: Emergency Medicine; Admitting Provider Family Medicine; Emergency Provider Emergency Medicine; PCP Emergency Medicine; Visit Provider Internal Medicine
DX: R55 Syncope and collapse (principal); R00.0 Tachycardia, unspecified; R59.0 Localized enlarged lymph nodes; F31.9 Bipolar disorder, unspecified; F41.8 Other specified anxiety disorders; R51 Headache; F42.8 Other obsessive-compulsive disorder; F12.90 Cannabis use, unspecified, uncomplicated
CPT/HCPCS: 36415; 70450; 70496; 70498; 70553; 71275; 80048; 81003; 81025; 83735; 84443; 84484; 85025; 93005; 96360; 96372; 99285; A9270; A9577; C8929; G0378; J1650; J7030; Q9957; Q9967

== ENCOUNTER 2020-06-20 09:05 | Outpatient (CLI) | payer OTHER, SELFPAY ==
--- NOTE | 2020-06-23 09:49 | WPDNEUROLOGY ---
Neurology EEG Report General Information Date of Study: 06/20/20 TEST EEG DIAGNOSIS syncopal episode with collapse CONDITION OF RECORDING awake drowsy and sleep EEG NUMBER [id number] CLINICAL HISTORY syncopal episode and collapse EEG DESCRIPTION basic resting occipital frequency consist of large amount of well-organized low to medium voltage 8 to 10 hertz per second alpha admixed with low-voltage 15 to 18 hertz per second beta. During drowsiness low-voltage beta activity seen diffusely admixed with waxing and waning posterior alpha rhythm. Bilateral symmetrical sleep activity seen with symmetrical sleep spindles. Non paroxysmal. Nonfocal. Nonlateralizing. IMPRESSION Normal EEG
== END 2020-06-20 09:06 | disposition home or self-care (01) ==
PROVIDERS: PCP Emergency Medicine; Visit Provider Psychiatry & Neurology Neurology
DX: R55 Syncope and collapse (principal)
CPT/HCPCS: 95816

== ENCOUNTER 2020-08-19 09:43 | Outpatient (CLI) | payer OTHER, SELFPAY ==
--- NOTE | ~2020-08-19 | US_ITS ---
EXAMINATION: US soft tissue head and neck EXAM DATE: 08/19/2020 10:03 INDICATION: Right posterior palpable neck mass, patient states been there since she was 6 years old. TECHNIQUE: Multiple grayscale and Doppler images of the right posterior neck palpable abnormality wer e obtained (by a technologist who performed the scan) and subsequently reviewed. Correlation is made to CTA carotid 05/04/2020. FINDINGS: Focal nodule of nonspecific soft tissue measuring 1.3 x 0.4 x 0.6 cm superficial to the posterior nec k musculature, could be lymph node, lipoma, hemangioma. If lymph node, this is considered within norm al size limits. There was mild internal jugular chain lymphadenopathy identified on prior CTA brain, but no soft tiss ue in posterior cervical region of the size. Please note lipomas can be difficult to identify by CT. IMPRESSION: Small subcutaneous nodule of soft tissue at palpable abnormality. Most likely benign hist ology given patient reports long-term finding, but nonspecific by ultrasound. Reviewed, dictated and finalized at location B. TICAL AIDE IMPRESSION: Small subcutaneous nodule of soft tissue at palpable abnormality. M ost likely benign histology given patient reports long-term finding, but nonspe cific by ultrasound.
== END 2020-08-19 09:44 | disposition home or self-care (01) ==
PROVIDERS: PCP Emergency Medicine; Visit Provider Emergency Medicine
DX: R22.1 Localized swelling, mass and lump, neck (principal)
CPT/HCPCS: 76536

== ENCOUNTER 2020-10-17 10:56 | Emergency (ER) | payer OTHER, SELFPAY ==
[2020-10-17] VITALS (10 sets, daily range): BP systolic 102–141; BP diastolic 51–90; PULSE 78–102; RESP 20–22; TEMP 36.8; O2SAT 96–100
--- NOTE | ~2020-10-17 | XR_ITS ---
XR ankle RT min 3V DATE: 10/17/2020 11:46 INDICATION: Fall. Right ankle injury, pain, swelling TECHNIQUE: 3 views COMPARISON: None FINDINGS: Fractures of the lateral and medial malleoli with 7.5 mm lateral displacement of the medial malleolus, 3.7 mm lateral and approximately 2 mm posterior displacement of the lateral malleolus, wi th posterolateral subluxation at the tibiotalar joint. IMPRESSION: Bimalleolar fracture and posterolateral subluxation of the tibiotalar joint Reviewed, dictated and finalized at location B. EDITOR IMPRESSION: Bimalleolar fracture and posterolateral subluxation of the tibiotal ar joint
--- NOTE | ~2020-10-17 | XR_ITS ---
XR ankle RT 2V DATE: 10/17/2020 13:45 INDICATION: Post reduction examination TECHNIQUE: AP and lateral views post reduction COMPARISON: None FINDINGS: There is a posterior splint. There is approximately 3 mm lateral displacement of the medial malleolar fracture] one cortical width lateral and posterior displacement of the lateral malleolar fracture. There is minimal residual late ral subluxation of the tibiotalar joint. IMPRESSION: Minimal residual lateral displacement at the bimalleolar fractures and minimal lateral re sidual tibiotalar subluxation Reviewed, dictated and finalized at location B. BURNER JOURNEYMAN IMPRESSION: Minimal residual lateral displacement at the bimalleolar fractures and minimal lateral residual tibiotalar subluxation
--- NOTE | ~2020-10-17 | XR_ITS ---
XR tibia fibula RT 2V DATE: 10/17/2020 12:26 INDICATION: Ankle fracture TECHNIQUE: AP and portable crosstable lateral views of right lower leg COMPARISON: July 17, 2021 right ankle FINDINGS: Again noted is laterally displaced bimalleolar fracture and lateral subluxation of the tibi otalar joint. Normal alignment of the knee joint. IMPRESSION: Laterally displaced bimalleolar fracture and lateral tibiotalar subluxation Reviewed, dictated and finalized at location B. TENANCE MACHINE REPAIRER IMPRESSION: Laterally displaced bimalleolar fracture and lateral tibiotalar sub luxation
--- NOTE | 2020-10-17 11:03 | PC.NURSE ---
pt refuses ice pack to injured ankle.
[2020-10-17] MEDS: ONDANSETRON INJ 4 MG/2 ML VIAL IV PUSH (12:22)
[2020-10-17] MEDS: MORPHINE SULFATE (*CRX) 4 MG/ML INJ IV PUSH (12:22)
--- NOTE | 2020-10-17 12:42 | ED.LOWEXIN ---
HPI - Extremity Injury (Lower) General Chief Complaint: Extremity Injury, Lower <Sruthi Sherman PA-C - Last Filed: 10/17/20 14:51> Stated Complaint: right ankle pain after fall <TOYIN Jernigan Last Filed: 10/17/20 14:51> Time Seen by Provider: 10/17/20 11:06 <Sruthi Sherman PA-C - Last Filed: 10/17/20 14:51> Source: patient <TOYIN Jernigan Last Filed: 10/17/20 14:51> Mode of arrival: wheelchair <TOYIN Jernigan Last Filed: 10/17/20 14:51> Limitations: no limitations <TOYIN Jernigan Last Filed: 10/17/20 14:51> History of Present Illness HPI Narrative: This is a 24-year-old female that presents the emergency department for right ankle pain after a fall today. Reports she slipped on the ice and fell. Reports she felt her ankle snap . Reports since she has had pain in the ankle. She is unable to bear weight due to pain. Reports decreased range of motion as well due to pain. Denies other injuries or numbness. <Sruthi Sherman PA-C - Last Filed: 10/17/20 14:51> Related Data Home Medications: Home Medications Medication Instructions Recorded Confirmed fluvoxamine 100 mg PO HS 04/27/20 05/02/20 lamotrigine 400 mg PO DAILY 04/27/20 05/02/20 Glucosamine Chondroitin 50 units BYMOUTH DAILY 05/02/20 05/02/20 cetirizine [Zyrtec] 10 mg PO DAILY 05/02/20 05/02/20 cholecalciferol (vitamin D3) 50 mcg PO DAILY 05/02/20 05/02/20 [Vitamin D3] magnesium 250 mg PO DAILY 05/02/20 05/02/20 <TOYIN Jernigan Last Filed: 10/17/20 14:51> Allergies/Adverse Reactions: Allergies Allergy/AdvReac Type Severity Reaction Status Date / Time No Known Allergies Allergy Verified 10/17/20 11:20 <TOYIN Jernigan Last Filed: 10/17/20 14:51> Review of Systems Review of Systems: Narrative: CONSTITUTIONAL: Denies fever MUSCULOSKELETAL: Reports joint pain, and myalgia. NEUROLOGIC: Denies numbness <Sruthi Sherman PA-C - Last Filed: 10/17/20 14:51> All systems reviewed & are unremarkable except as noted in HPI and below <Sruthi Sherman PA-C - Last Filed: 10/17/20 14:51> PMFSH Past Medical History Medical History: Medical History (Updated 10/17/20 @ 14:49 by Sruthi Sherman PA-C) Anxiety with depression Bipolar disorder Chronic headaches OCD (obsessive compulsive disorder) <Sruthi Sherman PA-C - Last Filed: 10/17/20 14:51> Surgical History Surgical History: Surgical History Hx of appendectomy Hx of removal of ovary Right. At the time of the appendix due to large ovarian cyst <Sruthi Sherman PA-C - Last Filed: 10/17/20 14:51> Family History Family History: Family History Mother Mental health disorder Grandparent Cerebrovascular accident <Sruthi Sherman PA-C - Last Filed: 10/17/20 14:51> Social History Social History: Social History Social History: She lives at home with her . No pets. 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 No tobacco use. She smoked marijuana but quit 3 weeks ago. No history of other drug use. Uses alcohol socially. She is a full code. She nominated her to be the individual would make medical decisions for her she is not able. Smoking status: Never smoker Alcohol intake: current Drinks per week: 1 Substance use: never Substance use type: marijuana Last use: 3 weeks ago Gender identity (if verbalized by the patient): Female Spiritual care concerns: No <Sruthi Sherman PA-C - Last Filed: 10/17/20 14:51> Exam Narrative: Exam Narrative: GENERAL: Well-appearing, well-nourished, and in no acute distress. HEAD: Normocephalic, atraumatic. EYES: EOMI. EXTREMITIES: Moderate edema about the right ankle with decreased ROM. Normal DP pulses. Normal sensation SKIN: Warm, dry, no rash. NEURO: No focal
--- NOTE | 2020-10-17 13:22 | PC.NURSE ---
etomidate 10 mg ivp given per dr patel vrbo. dr patel at bedside. manager hair in place
--- NOTE | 2020-10-17 13:24 | PC.NURSE ---
etomidate 10 mg ivp given per dr patel vrbo. dr patel at bedside. site monitor in place
[2020-10-17] MEDS: HYDROcodone/acetaminophen (*CRX) 5-325 MG TABLET 1 TAB PO (14:50)
== END 2020-10-17 15:29 | disposition home or self-care (01) ==
PROVIDERS: Emergency Provider Emergency Medicine; PCP Emergency Medicine
DX: S82.841A Displaced bimalleolar fracture of right lower leg, initial encounter for closed fracture (principal); F41.8 Other specified anxiety disorders; F31.9 Bipolar disorder, unspecified; F42.9 Obsessive-compulsive disorder, unspecified; W00.0XXA Fall on same level due to ice and snow, initial encounter
CPT/HCPCS: 27810; 73590; 73600; 73610; 96374; 96375; 99285; A9270; J2270; J2405

== ENCOUNTER → 2020-10-25 02:50 | Outpatient (CLI) | payer OTHER, SELFPAY ==
[2020-10-25 19:42] LABS: SARS-CoV-2 RNA PCR Negative
== END ==
PROVIDERS: PCP Emergency Medicine; Visit Provider Orthopaedic Surgery
DX: Z01.812 Encounter for preprocedural laboratory examination (principal); Z20.822 Contact with and (suspected) exposure to COVID-19
CPT/HCPCS: C9803; U0003; U0005

== ENCOUNTER 2020-10-27 00:57 | Day surgery (SDC) | payer OTHER, SELFPAY ==
[2020-10-23 10:28] VITALS: BMI 37.4
[2020-10-27] VITALS (11 sets, daily range): BP systolic 106–133; BP diastolic 62–83; PULSE 72–117; RESP 14–20; TEMP 36.6–36.8; O2SAT 96–99; BMI 36.9
--- NOTE | ~2020-10-27 | XR_ITS ---
EXAMINATION: XR surgery orthopedic DATE: 10/27/2020 08:25 INDICATION: ORIF right ankle fracture. TECHNIQUE: 3 fluoroscopic images of the right ankle were obtained during procedure performed by Dr. Donald staples. Radiologist was not present for the imaging or procedure. The amount of fluoroscopy time used during this procedure was 0.4 minutes. COMPARISON: 10/22/2020 FINDINGS: Interval reduction and internal fixation of the right ankle bimalleolar fracture with a pair of cannu lated lag screws fixing the medial malleolus and lateral plate and screw fixation along the distal fi bula. Alignment is near-anatomic with a congruent ankle mortise. No other fractures identified. Expec michele small amount of postoperative intra-articular gas at the ankle joint. Joint spaces are normal. IMPRESSION: 1. Internal fixation of a right ankle bimalleolar fracture which is in essentially anatomic alignment , negative for postoperative purposes. Reviewed, dictated and finalized at location B. CTOR RETIREMENT IMPRESSION: 1. Internal fixation of a right ankle bimalleolar fracture which is in essentia lly anatomic alignment, negative for postoperative purposes.
[2020-10-27] MEDS: LACTATED RINGERS 1,000 ML 30 ML IV CONT ×2 (06:53→08:53)
[2020-10-27] MEDS: KETOROLAC 15 MG/ML VIAL (*BKC) IV PUSH (06:54)
--- NOTE | 2020-10-27 07:00 | P.PNAN_ITS ---
Anes - Eval Pre Procedure Procedure: Operation Date: 10/27/20 07:30 Proposed Procedures p Open Reduction Internal Fixation Right Ankle Fracture - Bob West MD Date/Time: 10/27/20 07:00 Pre Op Diagnosis: right bimalleolar ankle fx Patient Data Age: 24 Gender: F Height: 1.65 m Weight: 102 kg Allergies Allergy/AdvReac Type Severity Reaction Status Date / Time coconut Allergy swelling Verified 10/27/20 06:41 of the throat & migraine pineapple Allergy swelling Verified 10/27/20 06:41 of throat & migraine Home Medications Medication Instructions Recorded Confirmed Type fluvoxamine 100 mg PO HS 04/27/20 10/27/20 History lamotrigine [Lamictal] 400 mg PO DAILY 04/27/20 10/27/20 History hydrocodone 5 mg-acetaminophen 325 1 tablet PO Q6H PRN #20 tablet 10/22/20 10/27/20 Rx mg tablet trazodone 50 mg tablet 50 mg PO DAILY tablet 10/23/20 10/27/20 History Patient hx anesthesia problems: none Family hx anesthesia problems: none PMFSH Past Medical History Medical History Anxiety with depression Bipolar disorder Bleeding nose History of bleeding nose Chronic headaches History of sleep disorder OCD (obsessive compulsive disorder) Wears glasses Surgical History Surgical History Hx of appendectomy Hx of removal of ovary Right. At the time of the appendix due to large ovarian cyst Family History Family History Mother Mental health disorder Grandparent Cerebrovascular accident Social History Social History Social History: She lives at home with her . No pets. 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 No tobacco use. She smoked marijuana but quit 3 weeks ago. No history of other drug use. Uses alcohol socially. She is a full code. She nominated her to be the individual would make medical decisions for her she is not able. Smoking status: Never smoker Alcohol intake: current Drinks per week: 1 Substance use: never Substance use type: does not use Last use: 3 weeks ago Living arrangements: with family Gender identity (if verbalized by the patient): Female Spiritual care concerns: No Exam Day of Procedure 10/27/20 07:00
--- NOTE | 2020-10-27 07:01 | WPDHPUPDATE1 ---
History and Physical Update Update Date/Time: 10/27/20 07:01 History and Physical has been reviewed, including an updated exam of the patient. There are NO changes in the patient's condition. Covid test negative. Risks, benefits, and alternatives have been discussed and questions answered. Patient agrees to proceed with procedure.
--- NOTE | 2020-10-27 07:02 | WPDANESEPPF ---
Anes - Initial Pre Proc Eval Procedure: Operation Date: 10/27/20 07:30 Proposed Procedures p Open Reduction Internal Fixation Right Ankle Fracture - Bob West MD Date/Time: 10/27/20 07:02 Surgeon: Bob West MD Pre Op Diagnosis: right bimalleolar ankle fx Patient Data Age: 24 Gender: F Height: 1.65 m Weight: 102 kg Allergies Allergy/AdvReac Type Severity Reaction Status Date / Time coconut Allergy swelling Verified 10/27/20 06:41 of the throat & migraine pineapple Allergy swelling Verified 10/27/20 06:41 of throat & migraine Home Medications Medication Instructions Recorded Confirmed Type fluvoxamine 100 mg PO HS 04/27/20 10/27/20 History lamotrigine [Lamictal] 400 mg PO DAILY 04/27/20 10/27/20 History hydrocodone 5 mg-acetaminophen 325 1 tablet PO Q6H PRN #20 tablet 10/22/20 10/27/20 Rx mg tablet trazodone 50 mg tablet 50 mg PO DAILY tablet 10/23/20 10/27/20 History Patient hx anesthesia problems: none Family hx anesthesia problems: none PMFSH Past Medical History Medical History (Updated 10/27/20 @ 07:02 by Del Kline MD) Anxiety with depression Bipolar disorder Bleeding nose History of bleeding nose Chronic headaches History of sleep disorder Obesity OCD (obsessive compulsive disorder) Wears glasses Surgical History Surgical History Hx of appendectomy Hx of removal of ovary Right. At the time of the appendix due to large ovarian cyst Family History Family History Mother Mental health disorder Grandparent Cerebrovascular accident Social History Social History Social History: She lives at home with her . No pets. 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 No tobacco use. She smoked marijuana but quit 3 weeks ago. No history of other drug use. Uses alcohol socially. She is a full code. She nominated her to be the individual would make medical decisions for her she is not able. Smoking status: Never smoker Alcohol intake: current Drinks per week: 1 Substance use: never Substance use type: does not use Last use: 3 weeks ago Living arrangements: with family Gender identity (if verbalized by the patient): Female Spiritual care concerns: No Anes - Eval Final PreProcedure Day of Procedure 10/27/20 07:02 Patient weight: obese Heart: regular rate and rhythm Lungs: clear to auscultation and normal air movement Airway: Mallampati scale class II Neurological: alert and oriented Last oral intake: >/= 8 hours ASA classification: III Emergent: no Anesthetic plan: proceed Anesthesia type and monitoring: general LMA Informed Consent: The patient's anesthetic plan and its attendant risks and benefits were discussed with the patient/family/POA. Questions were solicited and answers provided to the satisfaction of the patient/family/POA.
--- NOTE | 2020-10-27 07:06 | PM.PROC ---
Procedure Note - Detailed Date of procedure: 10/27/20 Pre-op diagnosis: right bimalleolar ankle fx Post-op diagnosis: same Procedure performed: ORIF RT ankle bimalleolar fracture Description of procedure: Operative indications: Patient is a 24 year-old woman who sustained an injury to the ankle. Radiographs show distal fibular fracture with displacement. Medial malleolus fracture with displacement and widening of the ankle mortise noted. Patient presents for operative treatment. Full discussion of the risks, benefits and alternatives of surgery was had with the patient. Questions answered. Patient verbalizes understanding and wishes to proceed. What was done: After informed consent, the operative extremity was marked in the preoperative holding area. Patient received intravenous antibiotics. Patient was then taken to the operating room and underwent general anesthesia by the anesthesia team. Positioned supine on the operating room table with a soft bump under the ipsilateral hip. A time-out was performed confirming the patient, site of the surgery, operative plan. Lower extremity then prepped and draped in the usual sterile surgical fashion using ChloraPrep skin solution. Foot and ankle exsanguinated and a thigh tourniquet inflated to 250 mmHg. Longitudinal incision made over the lateral ankle distal fibula with a 15 blade knife. Hemostasis controlled with electrocautery. Full-thickness soft tissue flaps developed and the fascia was incised in line with the skin incision. Fracture identified and cleared with a dental pick, irrigation and rongeur. Fracture reduced and held with bone-holding clamp. Image intensification confirmed reduction of the fracture and the ankle mortise. Fixation achieved with Neutralization with a lateral plate with unicortical screws distal to fracture and bicortical screws proximal to the fracture. Good alignment and stability of the fracture noted. Image intensification used to confirm reduction of the fracture and placement of the hardware. Medial side then addressed. Longitudinal incision made with a 15 blade knife over the medial malleolus fracture. Hemostasis controlled with electrocautery. Fascia incised in line with skin incision. Periosteum cleared from the medial malleolus fracture. Medial side of the joint inspected and noted to have mild amount of trauma to the chondral surface. Thorough irrigation of the ankle joint and suctioned out. Fracture reduced and provisionally pinned. Fixation achieved with 4.0 mm partially threaded cancellous screws x2 placed in cannulated screw fashion. Image intensification confirmed reduction of the fracture and placement of the hardware. Stress of the ankle performed with good stability of the ankle mortise in all directions. Wounds thoroughly irrigated with antibiotic solution. Fascia repaired with 00 Vicryl interrupted suture. Subcutaneous tissue repaired with 000 Monocryl interrupted suture and Skin approximated with amirah. Sterile dressings applied followed by bulky dressing and splint. Patient awoken from anesthesia, extubated and taken to the recovery room in stable condition. All sponge, needle and instrument counts correct at the end of the case. Palpable dorsalis pedis pulse noted prior to dressing. Implants: Arthrex fibula plate, 4mm screw x 2 Anesthesia: GLMA Surgeon: Bob West MD [employer]: 1st orthopaedic physician assistant Estimated blood loss (mL): 25 Tourniquet time (min): 45 Drains: No Packing: No Pathology: none sent Complications: None Condition: stable Disposition: PACU
[2020-10-27] MEDS: ceFAZolin 2 GM/D5W 50 ML 2 GM/50 ML BAG IVPB (07:25)
--- NOTE | 2020-10-27 07:27 | SUR.PREOP ---
0700; DR GROVE STATES DO NOT REMOVE SPLINT
[2020-10-27] MEDS: BUPIVACAINE HCL 0.5% PF 30 ML VIAL INFILTRATE (08:21)
[2020-10-27] MEDS: fentaNYL CITRATE INJ (*CRX) 100 MCG/2 ML VIAL 25 MCG IV PUSH ×4 (09:22→09:52)
[2020-10-27] MEDS: oxyCODONE HCL (*CRX) 5 MG TAB IR PO (10:41)
--- NOTE | 2020-10-27 13:37 | SUR.PHASEII ---
1100- pt asked about if they were going to be a block. Anesthesia notified to talk with pt pt seems comfortable. 1200- anes called again. here to see pt. No block to be placed. 1200- iv site has catheter removed, dressing applied. No redness or swelling noted.
== END 2020-10-27 12:25 | disposition home or self-care (01) ==
PROVIDERS: PCP Emergency Medicine; Visit Provider Orthopaedic Surgery
PROC: (CPT 27814; principal; 2020-10-27 07:30)
DX: S82.841A Displaced bimalleolar fracture of right lower leg, initial encounter for closed fracture (principal); F31.9 Bipolar disorder, unspecified; F41.8 Other specified anxiety disorders; F42.8 Other obsessive-compulsive disorder; W00.0XXA Fall on same level due to ice and snow, initial encounter; F12.90 Cannabis use, unspecified, uncomplicated
CPT/HCPCS: 27814; A9270; C1713; C1769; J0690; J1100; J1170; J1885; J2250; J2405; J2704; J3010; J7120

== ENCOUNTER 2020-12-09 10:40 | Emergency (ER) | payer OTHER, SELFPAY ==
[2020-12-09 10:42] VITALS: BP 116/70; PULSE 79; RESP 18; TEMP 37; O2SAT 98
--- NOTE | 2020-12-09 12:40 | ED.GENADULT ---
HPI - General Adult General Chief complaint: Unspecified Stated complaint: covid vaccine side effects Time Seen by Provider: 12/09/20 12:02 Source: patient Mode of arrival: ambulatory Limitations: no limitations History of Present Illness HPI narrative: This is a 25-year-old female that presents to the emergency department for headaches since her recent vaccine. Reports she had a Flex [employer] Flex Covid vaccine 4 days ago. Reports she has been getting some migraine since. Does report history of migraines. Only reports a mild headache currently. Also reports she has been having trouble with intermittent nosebleeds in the left nare since her vaccine. Does report history of nosebleeds as well and has had to see an ENT doctor in the past for this. She is not on any blood thinners. Denies fever, vision changes, vomiting, numbness, or weakness. Related Data Home Medications Medication Instructions Recorded Confirmed fluvoxamine 100 mg PO HS 04/27/20 11/24/20 lamotrigine [Lamictal] 400 mg PO DAILY 04/27/20 11/24/20 trazodone 50 mg tablet 150 mg PO DAILY tablet 10/23/20 11/24/20 Allergies Allergy/AdvReac Type Severity Reaction Status Date / Time coconut Allergy swelling Verified 12/09/20 10:45 of the throat & migraine pineapple Allergy swelling Verified 12/09/20 10:45 of throat & migraine Review of Systems Review of Systems: Narrative: CONSTITUTIONAL: Denies fever ENT: Reports epistaxis EYES: Denies visual changes GASTROINTESTINAL: Denies vomiting NEUROLOGIC: Reports headache. Denies numbness or weakness All systems reviewed & are unremarkable except as noted in HPI and below PMFSH Past Medical History Medical History Anxiety with depression Bipolar disorder Bleeding nose History of bleeding nose Chronic headaches History of sleep disorder Obesity OCD (obsessive compulsive disorder) Wears glasses Surgical History Surgical History History of ankle surgery Hx of appendectomy Hx of removal of ovary Right. At the time of the appendix due to large ovarian cyst Family History Family History Mother Mental health disorder Grandparent Cerebrovascular accident Grandparent Diabetes mellitus Father Digestive problems Social History Social History Social History: She lives at home with her . No pets. 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 No tobacco use. She smoked marijuana but quit 3 weeks ago. No history of other drug use. Uses alcohol socially. She is a full code. She nominated her to be the individual would make medical decisions for her she is not able. 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 HEAD: Normocephalic, atraumatic. EYES: PERRLA and EOMI. ENT: Nares clear, no rhinorrhea or epistaxis. Mucous membranes moist. Oropharynx without tonsillar hypertrophy exudate or other lesions. Bilateral TMs pearly vigil non-bulging NECK: Supple. No adenopathy or masses. Normal range of motion CHEST: Clear to auscultation. No respiratory distress. No wheezes rales or rhonchi HEART: Regular rate and rhythm. No murmur heard. Normal peripheral pulses. EXTREMITIES: Normal range of motion. No edema. Strength equal in bilateral upper extremities (5/5) SKIN: Warm, dry, no rash. NEURO: No focal deficits. Alert and oriented x3. Cranial nerves II through XII grossly intact PSYCH: Normal mood and affect
== END 2020-12-09 12:59 | disposition home or self-care (01) ==
PROVIDERS: Emergency Provider Emergency Medicine; PCP Emergency Medicine
DX: G43.909 Migraine, unspecified, not intractable, without status migrainosus (principal); R04.0 Epistaxis; Z87.891 Personal history of nicotine dependence; F41.9 Anxiety disorder, unspecified; F32.9 Major depressive disorder, single episode, unspecified
CPT/HCPCS: 99281

== ENCOUNTER → 2020-12-19 00:43 | Outpatient (CLI) | payer OTHER, SELFPAY ==
[2020-12-19 21:02] LABS: SARS-CoV-2 RNA PCR Negative
== END ==
PROVIDERS: PCP Emergency Medicine; Visit Provider Surgery
DX: Z01.812 Encounter for preprocedural laboratory examination (principal); Z20.822 Contact with and (suspected) exposure to COVID-19
CPT/HCPCS: C9803; U0003; U0005

== ENCOUNTER 2020-12-22 02:40 | Day surgery (SDC) | payer OTHER, SELFPAY ==
[2020-12-11 11:40] VITALS: BMI 36.6
[2020-12-22 10:10] VITALS: BP 122/71; PULSE 79; RESP 18; TEMP 36.4; O2SAT 98
[2020-12-22] MEDS: LACTATED RINGERS 1,000 ML 30 ML IV CONT ×2 (10:27→13:59)
--- NOTE | 2020-12-22 11:52 | SUR.PREOP ---
1130 PT MCDONALD AWARE OF SURGERY TIME DELAY
--- NOTE | 2020-12-22 11:56 | WPDANESEPPF ---
Anes - Initial Pre Proc Eval Procedure: Operation Date: 12/22/20 12:15 Proposed Procedures p Excision Of Right Posterior Cervical Lymph Node - Wilmer Reyes DO Date/Time: 12/22/20 11:56 Surgeon: Wilmer Reyes DO Pre Op Diagnosis: Right posterior cervical lymphadenopathy Patient Data Age: 25 Gender: F Height: 1.68 m Weight: 103.7 kg Last Vital Signs Temp 36.4 C L 12/22/20 10:10 Pulse 79 12/22/20 10:10 Resp 18 12/22/20 10:10 BP 122/71 12/22/20 10:10 Pulse Ox 98 12/22/20 10:10 Allergies Allergy/AdvReac Type Severity Reaction Status Date / Time coconut Allergy swelling Verified 12/22/20 10:18 of the throat & migraine pineapple Allergy swelling Verified 12/22/20 10:18 of throat & migraine Home Medications Medication Instructions Recorded Confirmed Type fluvoxamine 100 mg PO HS 04/27/20 12/22/20 History lamotrigine [Lamictal] 400 mg PO DAILY 04/27/20 12/22/20 History trazodone 50 mg tablet 150 mg PO HS tablet 10/23/20 12/22/20 History Patient hx anesthesia problems: none Family hx anesthesia problems: none PMFSH Past Medical History Medical History Anxiety with depression Bipolar disorder Bleeding nose History of bleeding nose Chronic headaches History of sleep disorder Obesity OCD (obsessive compulsive disorder) Wears glasses Surgical History Surgical History History of ankle surgery Hx of appendectomy Hx of removal of ovary Right. At the time of the appendix due to large ovarian cyst Family History Family History Mother Mental health disorder Grandparent Cerebrovascular accident Grandparent Diabetes mellitus Father Digestive problems Social History Social History Social History: She lives at home with her . No pets. 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 No tobacco use. She smoked marijuana but quit 3 weeks ago. No history of other drug use. Uses alcohol socially. She is a full code. She nominated her to be the individual would make medical decisions for her she is not able. 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 Gender identity (if verbalized by the patient): Female Spiritual care concerns: No Anes - Eval Final PreProcedure Day of Procedure 12/22/20 11:56 Patient weight: obese Heart: regular rate and rhythm Lungs: clear to auscultation and normal air movement Airway: Mallampati scale class II Neurological: alert and oriented Last oral intake: >/= 8 hours ASA classification: III Emergent: no Anesthetic plan: proceed Anesthesia type and monitoring: general GIVS and standard monitoring Informed Consent: The patient's anesthetic plan and its attendant risks and benefits were discussed with the patient/family/POA. Questions were solicited and answers provided to the satisfaction of the patient/family/POA.
--- NOTE | 2020-12-22 12:26 | PM.IMHP ---
H&P: HPI History of Present Illness Date/Time: 12/22/20 12:26 Chief Complaint: neck lump Narrative: 25 yo woman presents for excision of right posterior cervical lymph node. She reports no changes since seen in office. Review of Systems Review of Systems: All systems reviewed & are unremarkable except as noted in HPI and below Constitutional: Constitutional: Denies chills, Denies fever(s), Denies headache(s) and Denies weight loss Eyes: Eyes: Denies change in vision ENT: Denies dizziness, Denies headache(s), Denies neck mass and Denies throat swelling Cardiovascular: Cardiovascular: Denies chest pain, Denies lightheadedness and Denies dyspnea Respiratory: Respiratory: Denies cough, Denies dyspnea and Denies wheezing Gastrointestinal: Gastrointestinal: Denies abdominal pain, Denies change in bowel habits, Denies nausea and Denies vomiting Genitourinary: Genitourinary: Denies hematuria and Denies dysuria Musculoskeletal: Musculoskeletal: Reports as per HPI Integumentary/Breasts: Skin/Breast: Reports as per HPI Neurologic: Denies dizziness and Denies headache(s) Allergic/Immunologic: Allergic/Immunologic: Denies throat swelling and Denies wheezing PMFSH Past Medical History Medical History Anxiety with depression Bipolar disorder Bleeding nose History of bleeding nose Chronic headaches History of sleep disorder Obesity OCD (obsessive compulsive disorder) Wears glasses Surgical History Surgical History History of ankle surgery Hx of appendectomy Hx of removal of ovary Right. At the time of the appendix due to large ovarian cyst Family History Family History Mother Mental health disorder Grandparent Cerebrovascular accident Grandparent Diabetes mellitus Father Digestive problems Social History Social History Social History: She lives at home with her . No pets. 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 No tobacco use. She smoked marijuana but quit 3 weeks ago. No history of other drug use. Uses alcohol socially. She is a full code. She nominated her to be the individual would make medical decisions for her she is not able. 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 Gender identity (if verbalized by the patient): Female Spiritual care concerns: No Meds Home Medications and Allergies Home Medications Medication Instructions Recorded Confirmed Type fluvoxamine 100 mg PO HS 04/27/20 12/22/20 History lamotrigine [Lamictal] 400 mg PO DAILY 04/27/20 12/22/20 History trazodone 50 mg tablet 150 mg PO HS tablet 10/23/20 12/22/20 History Allergies Allergy/AdvReac Type Severity Reaction Status Date / Time coconut Allergy swelling Verified 12/22/20 10:18 of the throat & migraine pineapple Allergy swelling Verified 12/22/20 10:18 of throat & migraine Vital Signs Vital Signs - 24 hr 12/22/20 10:10 Temperature 36.4 C L Pulse Rate 79 Respiratory Rate 18 Blood Pressure 122/71 Pulse Oximetry 98 Exam Const: General: no acute distress and alert Orientation/consciousness: patient oriented x3 HENMT: Head: normocephalic and atraumatic Ears: hearing grossly normal bilaterally General nose exam: Normal nares present Mouth: Yes Normal oral and palatal mucosa present Eyes: Periorbital: periorbital findings normal Sclera: sclerae normal EOM: EOMs intact bilaterally Neck: Neck: normal visual inspection, no lymphadenopathy and trachea midline Lymphatic: lymphadenopathy (1cm right posterior lymph node) Chest: Chest palpation & inspection: normal
--- NOTE | 2020-12-22 12:29 | WPDHPUPDATE1 ---
History and Physical Update Update Date/Time: 12/22/20 12:29 History and Physical has been reviewed, including an updated exam of the patient. There are NO changes in the patient's condition. Risks, benefits, and alternatives have been discussed and questions answered. Patient agrees to proceed with procedure.
[2020-12-22] MEDS: BUPIVACAINE/EPINEPHRINE 0.5% 30 ML VIAL INFILTRATE (13:40)
[2020-12-22 13:59] VITALS: BP 130/69; PULSE 70; RESP 16; O2SAT 96
--- NOTE | 2020-12-22 14:00 | P.OP_ITS ---
Procedure Note - Detailed Date of procedure: 12/22/20 Pre-op diagnosis: Right posterior cervical lymphadenopathy Post-op diagnosis: same Procedure performed: 1. Excision of right posterior cervical lymph node 2. Layered closure Description of procedure: * Procedure as well as risks, benefits, and alternatives were discussed with the patient. Written consent was obtained and placed in chart prior to procedure. Patient was brought back to surgical suite. She was placed in left lateral decubitus position. Time-out was done to confirm patient procedure. Her left neck area was prepped and draped in sterile fashion using chlorhexidine prep. IV sedation was administered by the Anesthesia Department. 1% lidocaine with epinephrine was infiltrated locally overlying the palpable lymph node. A 2 cm incision was then made over the lymph node using a 15 blade scalpel. Electrocautery was used for hemostasis and for careful dissection through the dermis and subcutaneous fat. The lymph node was identified and carefully was dissected free with blunt dissection with a curved hemostat. Lymph node was then grasped with the hemostat and then further dissected free using Metzenbaum scissors. The lymph node was completely dissected free and was sent to the lab for pathology. Pressure was applied for hemostasis. The wound was then checked and hemostasis appeared adequate. The deep dermis was reapproximated using 3 0 Vicryl simple interrupted suture. The skin was then reapproximated using 4 0 Monocryl running subcuticular suture. Exofin glue was then applied on top. The patient was then awakened from anesthesia and transferred to recovery. Anesthesia: MAC and local (1% lidocaine with epinephrine) Surgeon: Wilmer Reyes DO Estimated blood loss (mL): 2 Pathology: yes (Right posterior cervical lymph node) Complications: No immediate complications Condition: stable Disposition: same day Findings: This is a 25-year-old woman who presented with complaints of a palpable knot on the right posterior neck. She states that this has been present for at least 15-20 years. It may be slightly larger, but size does appear to wax and wane. Discussions were made with the patient that this was most likely benign giving the head presents, because this was causing her some discomfort she wished to have this removed. Decision was made to proceed with excision of right posterior cervical lymph node. Right posterior cervical lymph node was excised. This appeared to be a 1 cm lymph node and did not have any matted appearance or any other concerning findings. The lymph node was completely excised and sent to the lab for pathology. No other abnormalities were noted.
[2020-12-22 14:25] VITALS: BP 146/67; PULSE 72; RESP 16; O2SAT 100
[2020-12-22 14:45] VITALS: BP 132/67; PULSE 62; RESP 16; O2SAT 100
== END 2020-12-22 14:55 | disposition home or self-care (01) ==
PROVIDERS: PCP Emergency Medicine; Visit Provider Surgery
PROC: (CPT 38500; principal; 2020-12-22 12:15)
DX: R59.0 Localized enlarged lymph nodes (principal); F31.9 Bipolar disorder, unspecified; F42.8 Other obsessive-compulsive disorder; E66.9 Obesity, unspecified; Z68.36 Body mass index [BMI] 36.0-36.9, adult; F12.90 Cannabis use, unspecified, uncomplicated
CPT/HCPCS: 38500; 88305; C9803; J2250; J2405; J2704; J3010; J7120; U0003; U0005

== ENCOUNTER 2021-03-19 09:41 | Emergency (ER) | payer OTHER, SELFPAY ==
--- NOTE | 2021-03-19 09:45 | ECG_ITS ---
Measurements Intervals [place] Rate: 59 P: 21 [place]: 147 QRS: 28 QRSD: 92 T: -4 QT: 397 QTc: 394 Interpretive Statements SINUS BRADYCARDIA WITH SINUS ARRHYTHMIA INCOMPLETE RIGHT BUNDLE BRANCH BLOCK BORDERLINE ST-T WAVE ABNORMALITY- INFERIOR LEADS BORDERLINE ECG Electronically Signed On 03-19-2021 11:47:02 CDT by Valdez Thomson D.O.
[2021-03-19 10:10] VITALS: BP 115/66; PULSE 72; RESP 15; TEMP 36.8; O2SAT 99
--- NOTE | 2021-03-19 10:36 | PC.NURSE ---
Attempted blood draw in intake without success.
[2021-03-19 11:07] VITALS: BP 124/72; PULSE 66; RESP 20; O2SAT 100
[2021-03-19 11:08] VITALS: BP 109/71; PULSE 63
[2021-03-19 11:09] VITALS: BP 116/76; PULSE 80
[2021-03-19 11:10] VITALS: BP 106/68; PULSE 84
[2021-03-19 11:27] LABS: Basophils Percent Auto 0.2 % (0.2-1.2); Eosinophils Absolute Auto 0.1 K/mm3 (0-0.3); Eosinophils Percent Auto 0.5 % (0-4.4); Hematocrit 43.7 % (37.0-47.0); Hemoglobin 14.4 g/dL (12.0-15.0); Immature Granulocyte Absolute 0.03 K/mm3 (0.00-0.031); Immature Granulocyte Percent A 0.3 % (0-0.5); Lymphocytes Absolute Auto 2.79 K/mm3 (0.9-3.2); Lymphocytes Percent Auto 30.2 % (18.3-44.2); Mean Corpuscular Hemoglobin 28.9 pg (26-34); Mean Corpuscular Volume 87.8 fl (80-100); Mean Platelet Volume 9.8 fl (7.4-10.4); Monocytes Absolute Auto 0.4 K/mm3 (0.1-0.6); Monocytes Percent Auto 3.9 % (2.6-8.5); Neutrophils Percent Auto 64.9 % (45.5-73.1); Platelet Count Result 238 k/mm3 (150-375); Red Blood Count 4.98 M/mm3 (4.2-5.4); Red Cell Distribution Width 12.8 % (11.5-14.5); White Blood Count 9.2 K/mm3 (4.5-10.0)
[2021-03-19 11:42] LABS: Anion Gap 9 mmol/L (8-16); Blood Urea Nitrogen 11 mg/dL (7-17); Calcium 9.9 mg/dL (8.4-10.2); Carbon Dioxide 27 mmol/L (22-30); Chloride 103 mmol/L (98-107); Estimated CRCL calculation 103 ml/min; Estimated Glomerular Filt Rate > 60; Glucose 111 mg/dL (65-110); Potassium 4.3 mmol/L (3.4-5.0); Sodium 139 mmol/L (137-145)
[2021-03-19] MEDS: SODIUM CHLORIDE 0.9% IV 1,000 ML 999 ML IV CONT (12:21)
--- NOTE | 2021-03-19 12:58 | ED.GENADULT ---
HPI - General Adult General Chief complaint: Syncope Stated complaint: syncope Time Seen by Provider: 03/19/21 11:46 Source: patient and RN notes reviewed Mode of arrival: ambulatory Limitations: no limitations History of Present Illness HPI narrative: Patient is a 25-year-old female who presents for evaluation of syncope patient has history of vasovagal syncope is followed by her primary care for this as well as cardiology neurology and multiple other subspecialties patient had an episode of syncope today. Patient on arrival has no complaints denies any illnesses otherwise resting comfortably in the room in no distress denies any injuries related to her syncope Related Data Home Medications Medication Instructions Recorded Confirmed fluvoxamine 100 mg PO HS 04/27/20 03/17/21 lamotrigine [Lamictal] 400 mg PO DAILY 04/27/20 03/17/21 trazodone 50 mg tablet 150 mg PO HS tablet 10/23/20 03/17/21 Allergies Allergy/AdvReac Type Severity Reaction Status Date / Time coconut Allergy swelling Verified 03/19/21 10:14 of the throat & migraine pineapple Allergy swelling Verified 03/19/21 10:14 of throat & migraine Review of Systems Review of Systems: All systems reviewed & are unremarkable except as noted in HPI and below PMFSH Past Medical History Medical History Anxiety with depression Bipolar disorder Bleeding nose History of bleeding nose Chronic headaches History of sleep disorder Obesity OCD (obsessive compulsive disorder) Wears glasses Surgical History Surgical History History of ankle surgery Hx of appendectomy Hx of removal of ovary Right. At the time of the appendix due to large ovarian cyst Family History Family History Mother Mental health disorder Grandparent Cerebrovascular accident Grandparent Diabetes mellitus Father Digestive problems Social History Social History Social History: She lives at home with her . No pets. 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 No tobacco use. She smoked marijuana but quit 3 weeks ago. No history of other drug use. Uses alcohol socially. She is a full code. She nominated her to be the individual would make medical decisions for her she is not able. 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 HEAD: Normocephalic, atraumatic. EYES: PERRLA and EOMI. ENT: Nares clear, no rhinorrhea or epistaxis. Mucous membranes moist. CHEST: Clear to auscultation. No respiratory distress. No wheezes rales or rhonchi HEART: Regular rate and rhythm. No murmur heard. EXTREMITIES: Normal range of motion. No edema. SKIN: Warm, dry, no rash. NEURO: No focal deficits. Alert and oriented x3. Cranial nerves II through XII grossly intact. Normal speech and gait PSYCH: Normal mood and affect. Course Course Emergency Course: Patient in the room no distress hemodynamically stable ABCs and vital signs intact and stable no high risk changes in the blood work felt appropriate for continued evaluation of her syncope by her specialist and primary care Vital Signs Vital signs: Vital Signs Temperature 98.2 F 03/19/21 10:10 Pulse Rate 72 03/19/21 10:10 Respiratory Rate 15 03/19/21 10:10 Blood Pressure 115/66 03/19/21 10:10 Pulse Oximetry 99 03/19/21 1
[2021-03-19 13:31] VITALS: BP 112/72; PULSE 73; RESP 16; O2SAT 100
--- NOTE | 2021-03-31 15:06 | PC.NURSE ---
LATE ENTRY This note is being entered to document information to the patient's record. The following information was omitted on [03/19/21], by [Santa Ryan RN]. Iv fluid NS stop time 1325, 1000ml infused.
== END 2021-03-19 13:32 | disposition home or self-care (01) ==
PROVIDERS: Emergency Provider Emergency Medicine
DX: R55 Syncope and collapse (principal); F41.8 Other specified anxiety disorders; F31.9 Bipolar disorder, unspecified; F42.9 Obsessive-compulsive disorder, unspecified; E66.9 Obesity, unspecified; Z68.39 Body mass index [BMI] 39.0-39.9, adult; R00.1 Bradycardia, unspecified; I45.10 Unspecified right bundle-branch block; R94.31 Abnormal electrocardiogram [ECG] [EKG]
CPT/HCPCS: 36415; 80048; 81025; 85025; 93005; 96360; 99284; J7030

== ENCOUNTER 2021-04-23 13:20 | Outpatient (CLI) | payer OTHER, SELFPAY ==
--- NOTE | ~2021-04-23 | CT_ITS ---
EXAMINATION: CT abdomen pelvis w con DATE: 04/23/2021 14:35 INDICATION: Right lower quadrant abdominal pain. TECHNIQUE: Computed tomography (CT) of the abdomen and pelvis was performed with 100 mL Omnipaque 350 intravenous contrast. Automated exposure control and iterative reconstruction technique were employe d. The dose-length product was 1125.58 mGy-cm. COMPARISON: None. FINDINGS: The visualized portions of the lung bases demonstrate minimal atelectasis. No pleural effus ion. The heart size is normal. No pericardial effusion. The liver, gallbladder, spleen, pancreas, adr enal glands, and kidneys are normal. There is an intrauterine device in expected position. There are no dilated loops of bowel. There are changes of appendectomy. There are no pathologically enlarged ly mph nodes. There is no free intraperitoneal fluid. The bones are unremarkable. IMPRESSION: 1. No etiology for the patient's symptoms. Reviewed, dictated and finalized at location A.
[2021-04-26 17:51] LABS: ANCA Screen Negative (Negative); Myeloperoxidase Ab <1.0 AI (<1.0); Proteinase-3 Ab <1.0 AI (<1.0); S cerevisiae Ab (IgA) 6.8 U (<=20.0); S cerevisiae Ab (IgG) 5.9 U (<=20.0)
== END 2021-04-23 13:21 | disposition home or self-care (01) ==
PROVIDERS: Visit Provider Internal Medicine Gastroenterology
DX: R10.31 Right lower quadrant pain (principal); R19.7 Diarrhea, unspecified; K92.2 Gastrointestinal hemorrhage, unspecified
CPT/HCPCS: 36415; 74177; 86021; 86140; 86671; Q9967